=== PATIENT | female | born 1975 | race Caucasian/White ===

== ENCOUNTER 2018-09-30 10:27 | Outpatient (CLI) | payer OTHER, SELFPAY ==
[2018-09-30 11:16] LABS: HCG Qual (Urine) Negative
== END 2018-09-30 10:47 ==
PROVIDERS: PCP Nurse Practitioner Family; Visit Provider Radiology Radiation Oncology
DX: C50.112 Malignant neoplasm of central portion of left female breast (principal)
CPT/HCPCS: 81025

== ENCOUNTER 2019-02-09 11:35 | Outpatient (REF) | payer OTHER, SELFPAY ==
--- NOTE | 2019-02-09 11:00 | PAPFT_PTH ---
PATIENT: Aura Light LOC: N U#:[id number] AGE/SX: 43/F ROOM: RE02/09/[address]: Radha Estevez : 1975 BED: DIS: 02/09/2019 SPEC #: [id number] RECD: 02/09/19 11:53 STATUS: JERE REAlexis #: [id number] DAVID: 02/09/19 11:[address]: Radha Estevez DEPT: [facility] Cytology RECD BY: [place] ENTERED: 02/09/19 11:54 SP TYPE: PAPFT OTHR DR: Shereen العلي Tissues: 1 - CX/ENDOCX FOR PAP SMEARS Procedures: PAP THIN PREP/UVM Screening HPV DNA PROBE Comments: [id number]
== END 2019-02-09 11:55 ==
LOC: LBN 11:35
PROVIDERS: PCP Nurse Practitioner Women's Health; Visit Provider Obstetrics & Gynecology Gynecology
DX: Z12.4 Encounter for screening for malignant neoplasm of cervix (principal); Z11.51 Encounter for screening for human papillomavirus (HPV)
CPT/HCPCS: 88142; 87624

== ENCOUNTER 2019-02-17 00:18 | Outpatient (CLI) | payer OTHER, SELFPAY ==
--- NOTE | 2019-02-17 07:54 | DI.US_ITS ---
SYMPTOM/DIAGNOSIS: UTERINE BLEEDING, TAKING TAMOXIFEN N93.9 ABNORMAL UTERINE, VAGINAL BLEEDING PELVIC ULTRASOUND: 02/17/19 Pelvic ultrasound was performed transabdominally and transvaginally. Please see the accompanying data sheet for measurements of the pelvic structures. There are a couple of small uterine fibroids in the fundus, the largest measuring about 29 mm in greatest diameter. Left ovary contains simple 15 mm cyst. Right ovary contains a septated 46 x 31 x 32 mm predominantly cystic lesion with some internal septations and question of mild septal thickening. Lesion appears avascular. No free fluid identified in the cul de sac. Limited scanning of the kidneys is unremarkable. Endometrial stripe is homogeneous and 2 mm in thickness. CONCLUSION: 1. Small uterine fibroids 2. Small simple left ovarian cyst 3. 4.6 cm in greatest diameter septated right ovarian cyst with wall thickening, this is most likely benign process but the possibility of malignancy could not be excluded on the basis of this examination. Follow up examination recommended in 4-6 weeks and if this findings does not resolve additional evaluation with pelvic MRI would be recommended.
== END 2019-02-17 00:38 ==
PROVIDERS: PCP Nurse Practitioner Women's Health; Visit Provider Obstetrics & Gynecology Gynecology
DX: N93.9 Abnormal uterine and vaginal bleeding, unspecified (principal); D25.9 Leiomyoma of uterus, unspecified; N83.291 Other ovarian cyst, right side; N83.292 Other ovarian cyst, left side
CPT/HCPCS: 76830; 76856

== ENCOUNTER 2019-03-23 01:16 | Outpatient (CLI) | payer OTHER, SELFPAY ==
[2019-03-23 09:01] LABS: Abs Immature Grans 0.01 k/cumm (0.0-0.09); Absolute Basophil Count 0.03 k/cumm (0.0-0.2); Absolute Eosinophil Count 0.18 k/cumm (0.0-0.7); Absolute Lymphocyte Count 1.49 k/cumm (1.2-3.4); Absolute Monocyte Count 0.51 k/cumm (0.11-0.7); Absolute Neutrophil Count 3.93 k/cumm (1.2-6.7); Basophils % 0.5; Eosinophils % 2.9; HCT 39.5 % (36.0-46.0); HGB 13.2 g/dL (12.0-15.5); Immature Grans % 0.2; Lymphocytes % 24.2; Mean Corp. HGB Concentration 33.4 g/dL (32.0-36.0); Mean Corpuscular Hemoglobin 32.4 pg (27.0-33.0); Mean Corpuscular Volume 96.8 fL (80-95); Mean Platelet Volume 9.4 fL (8.0-11.0); Monocytes % 8.3; Neutrophils % 63.9; Platelet Count 249 x1000/uL (130-400); RBC 4.08 m/cumm (4.00-5.20); RBC Distribution Width 11.8 % (11.7-14.6); White Blood Cell Count 6.15 k/cumm (4.4-10.8)
[2019-03-23 16:58] LABS: Estradiol 182 pg/ml
[2019-03-24 09:57] LABS: FSH 22.6 mIU/ml
[2019-03-26 13:57] LABS: ALT 13 U/L (12-78); AST 10 U/L (15-37); Albumin 3.6 g/dL (3.4-5.0); Alkaline Phosphatase 50 U/L (46-116); Anion Gap 6.6 mmol/L (3-11); BUN 13 mg/dL (7-18); Bilirubin, Total 0.1 mg/dL (0.2-1.0); CO2 30.4 mmol/L (21.0-32.0); CREATININE 0.75 mg/dL (0.55-1.02); Calcium 8.9 mg/dL (8.5-10.1); Chloride 106 mmol/L (98-107); Glucose 83 mg/dL (70-100); Potassium 3.8 mmol/L (3.5-5.1); Sodium 143 mmol/L (136-145); Total Protein 7.2 g/dL (6.4-8.2)
== END 2019-03-23 01:36 ==
PROVIDERS: PCP Nurse Practitioner Women's Health; Visit Provider Internal Medicine
DX: C50.912 Malignant neoplasm of unspecified site of left female breast (principal); E28.319 Asymptomatic premature menopause
CPT/HCPCS: 36415; 80053; 82670; 83001; 85025

== ENCOUNTER 2019-07-25 01:44 | Outpatient (CLI) | payer OTHER, SELFPAY ==
[2019-07-25 11:27] LABS: ALT 13 U/L (14-59); AST 12 U/L (15-37); Albumin 3.6 g/dL (3.4-5.0); Alkaline Phosphatase 52 U/L (46-116); Anion Gap 5.4 mmol/L (3-11); BUN 14 mg/dL (7-18); Bilirubin, Total 0.2 mg/dL (0.2-1.0); CO2 28.6 mmol/L (21.0-32.0); CREATININE 0.75 mg/dL (0.55-1.02); Chloride 107 mmol/L (98-107); Glucose 83 mg/dL (74-106); Potassium 4.3 mmol/L (3.5-5.1); Sodium 141 mmol/L (136-145); Total Protein 7.1 g/dL (6.4-8.2)
== END 2019-07-25 02:04 ==
PROVIDERS: PCP Nurse Practitioner Family; Visit Provider Internal Medicine
DX: C50.112 Malignant neoplasm of central portion of left female breast (principal); Z17.0 Estrogen receptor positive status [ER+]
CPT/HCPCS: 36415; 80053

== ENCOUNTER 2019-11-06 08:07 | Outpatient (REF) | payer OTHER, SELFPAY ==
[2019-11-06 18:11] LABS: ALT 18 U/L (14-59); AST 21 U/L (15-37); Albumin 3.8 g/dL (3.4-5.0); Alkaline Phosphatase 60 U/L (46-116); Anion Gap 6.7 mmol/L (3-11); BUN 14 mg/dL (7-18); Bilirubin, Total 0.2 mg/dL (0.2-1.0); CO2 31.3 mmol/L (21.0-32.0); CREATININE 0.77 mg/dL (0.55-1.02); Calcium 9.4 mg/dL (8.5-10.1); Chloride 106 mmol/L (98-107); Glucose 83 mg/dL (74-106); Potassium 4.1 mmol/L (3.5-5.1); Sodium 144 mmol/L (136-145); Total Protein 7.6 g/dL (6.4-8.2)
== END 2019-11-06 08:27 ==
LOC: NCHCN 08:07
PROVIDERS: PCP Nurse Practitioner Family; Visit Provider Nurse Practitioner Family
DX: C50.112 Malignant neoplasm of central portion of left female breast (principal); Z17.0 Estrogen receptor positive status [ER+]
CPT/HCPCS: 80053

== ENCOUNTER 2020-02-11 02:25 | Outpatient (CLI) | payer OTHER, SELFPAY ==
[2020-02-11 17:31] LABS: ALT 20 U/L (14-59); AST 16 U/L (15-37); Albumin 3.9 g/dL (3.4-5.0); Alkaline Phosphatase 61 U/L (46-116); Anion Gap 9.1 mmol/L (3-11); BUN 17 mg/dL (7-18); Bilirubin, Total 0.2 mg/dL (0.2-1.0); CO2 24.9 mmol/L (21.0-32.0); Calcium 9.2 mg/dL (8.5-10.1); Chloride 105 mmol/L (98-107); Glucose 94 mg/dL (74-106); Potassium 4.5 mmol/L (3.5-5.1); Sodium 139 mmol/L (136-145); Total Protein 7.6 g/dL (6.4-8.2)
== END 2020-02-11 02:45 ==
PROVIDERS: PCP Nurse Practitioner Family; Visit Provider Internal Medicine
DX: C50.112 Malignant neoplasm of central portion of left female breast (principal); Z17.0 Estrogen receptor positive status [ER+]
CPT/HCPCS: 36415; 80053

== ENCOUNTER 2020-02-22 00:35 | Outpatient (CLI) | payer OTHER, SELFPAY ==
--- NOTE | 2020-02-22 06:45 | DI.US_ITS ---
EXAM: US PELVIS TRANSVAGINAL CLINICAL HISTORY: RLQ pain - s/p EM ablation,acute, r10.31. TECHNIQUE: Transabdominal and transvaginal pelvic ultrasound was performed using standard protocol. COMPARISON: US US PELVIS TRANSVAGINAL from 02/17/2019 FINDINGS: KIDNEYS: Kidneys are symmetric in size. No evidence of renal calculi. No evidence of hydronephrosis. No renal mass or cyst identified. UTERUS: Position: Anteverted. Size: 8.1 long by 3.7 AP by 5.0 transverse cm Endometrium: 0.3 cm. Normal for patient's menstrual status. Myometrium: 2.5 x 2.1 x 2.2 cm fibroid in the anterior fundus. Cervix: Unremarkable. OVARIES: Right: 3.9 x 1.9 x 2.2 cm Cyst or mass: There is a 2.7 x 1.5 x 1.9 cm solid mildly vascular lesion adjacent to or part of the r ight ovary. Left: 4.2 x 4.1 x 3.9 cm Cyst or mass: 3.6 x 2.6 x 3.3 cm simple cyst. DOPPLER: Color: Symmetric and uniform flow to both ovaries. No hyperemia. CUL-DE-SAC: Free fluid: Small amount of free fluid in the cul-de-sac. Other: None. IMPRESSION: 1. Normal sonographic appearance of the kidneys. 2. Fibroid uterus with normal endometrial stripe appearance. 3. 3.6 cm simple left ovarian cyst. 4. 2.7 x 1.5 x 1.9 cm solid mildly vascular lesion adjacent to or part of the right ovary. Further e valuation with MRI of the pelvis should be considered. DATA REPOSITORY:
== END 2020-02-22 00:55 ==
PROVIDERS: PCP Nurse Practitioner Family; Visit Provider Nurse Practitioner Family
DX: R10.31 Right lower quadrant pain (principal); D25.9 Leiomyoma of uterus, unspecified; N83.291 Other ovarian cyst, right side; N83.292 Other ovarian cyst, left side
CPT/HCPCS: 76830; 76856

== ENCOUNTER 2020-03-01 01:14 | Outpatient (CLI) | payer OTHER, SELFPAY ==
--- NOTE | 2020-03-01 06:45 | DI.MRI_ITS ---
EXAM: MR PELVIS WO/W CLINICAL HISTORY: rt ovarian mass, breast ca,q50.39,c50.919 TECHNIQUE: Multiplanar multisequence MRI of Pelvis was performed. CONTRAST MATERIAL: IV Contrast: 12.7 mL of Dotarem contrast administered. COMPARISON: US US PELVIS TRANSVAGINAL from 02/17/2019 US US PELVIS TRANSVAGINAL from 02/22/2020 FINDINGS: Uterus: There is a 2.5 long by 1.8 AP by 2.4 transverse cm mass in the anterior body of the uterus co nsistent with a fibroid. It is hypointense on both T1 and T2 weighted images. Following contrast ad ministration, it remains hypointense relative to the remainder of the uterus. There is a 2.5 long by 1.8 AP by 2.4 transverse cm mass adjacent to the fundal right side of the uter us. This corresponds to the mass seen on the ultrasound from 02/22/2020. Its signal characteristics are are similar to the uterine fibroid previously described. It is closely associated with the adjac ent uterus. This may represent an exophytic or pedunculated fibroid. The left ovary measures 2.7 x 4.2 cm. It contains cysts. The largest cyst measures 2.6 cm. The right ovary measures 3.4 x 2.9 cm. It contains cysts. The largest is a hemorrhagic cyst measuri ng 2 x 1.5 cm. There is a small amount of free fluid in the pelvis. The urinary bladder is grossly unremarkable. No significant adenopathy is present. IMPRESSION: 1. 2.5 cm anterior uterine fibroid. 2. 2.5 cm mass adjacent to the fundal right side of the uterus. Its signal characteristics are simil ar to the previously described uterine fibroid. This may represent an exophytic or pedunculated fibr oid. Other pelvic masses cannot be entirely excluded. 3. Bilateral ovarian cysts including a right ovarian hemorrhagic cyst. 4. Small amount of free fluid in the pelvis. DATA REPOSITORY:
[2020-03-01] MEDS: Gadoterate meglumine 20 ML VIAL 12.7 ML IV (08:41)
== END 2020-03-01 01:34 ==
PROVIDERS: PCP Nurse Practitioner Family; Visit Provider Obstetrics & Gynecology Gynecology
DX: C50.919 Malignant neoplasm of unspecified site of unspecified female breast (principal); Q50.39 Other congenital malformation of ovary; D25.9 Leiomyoma of uterus, unspecified; R93.89 Abnormal findings on diagnostic imaging of other specified body structures; N83.201 Unspecified ovarian cyst, right side; N83.202 Unspecified ovarian cyst, left side
CPT/HCPCS: 72197

== ENCOUNTER 2020-08-17 04:29 | Outpatient (CLI) | payer OTHER, SELFPAY ==
[2020-08-17 16:48] LABS: Abs Immature Grans 0.02 10^3/uL (0.0-0.06); Absolute Basophil Count 0.05 10^3/uL (0.0-0.2); Absolute Eosinophil Count 0.19 10^3/uL (0.0-0.7); Absolute Lymphocyte Count 1.94 10^3/uL (1.2-3.4); Absolute Monocyte Count 0.43 10^3/uL (0.1-0.8); Absolute Neutrophil Count 3.63 10^3/uL (1.2-6.7); Basophils % 0.8; HCT 39.6 % (36.0-46.0); HGB 13.4 g/dL (11.2-15.7); Immature Grans % 0.3; MCH 32.9 pg (27.0-33.0); MCHC 33.8 % (32.0-36.0); MCV 97.3 fL (80-95); MPV 9.2 fL (8.0-11.0); Monocytes % 6.9; Nucleated RBC 0 %; Platelet Count 260 10^3/uL (130-400); RBC 4.07 10^6/uL (3.93-5.22); RDW 11.7 % (11.7-14.6); WBC 6.26 10^3/uL (4.4-10.8)
[2020-08-17 18:06] LABS: ALT 24 U/L (14-59); AST 17 U/L (15-37); Albumin 3.9 g/dL (3.4-5.0); Alkaline Phosphatase 61 U/L (46-116); Anion Gap 7.1 mmol/L (3-11); BUN 15 mg/dL (7-18); Bilirubin, Total 0.2 mg/dL (0.2-1.0); CO2 28.9 mmol/L (21.0-32.0); Calcium 9.1 mg/dL (8.5-10.1); Chloride 103 mmol/L (98-107); Glucose 91 mg/dL (74-106); Potassium 4.5 mmol/L (3.5-5.1); Sodium 139 mmol/L (136-145); Total Protein 7.7 g/dL (6.4-8.2)
== END 2020-08-17 04:49 ==
PROVIDERS: PCP Nurse Practitioner Family; Visit Provider Nurse Practitioner Adult Health
DX: C50.112 Malignant neoplasm of central portion of left female breast (principal); Z17.0 Estrogen receptor positive status [ER+]; Z79.810 Long term (current) use of selective estrogen receptor modulators (SERMs)
CPT/HCPCS: 80053; 85025

== ENCOUNTER 2020-11-18 02:59 | Outpatient (CLI) | payer OTHER, SELFPAY ==
[2020-11-18 14:55] LABS: ALT 40 U/L (14-59); AST 20 U/L (15-37); Albumin 3.7 g/dL (3.4-5.0); Alkaline Phosphatase 54 U/L (46-116); Anion Gap 7.5 mmol/L (3-11); BUN 18 mg/dL (7-18); Bilirubin, Total 0.2 mg/dL (0.2-1.0); CO2 29.5 mmol/L (21.0-32.0); CREATININE 0.7 mg/dL (0.55-1.02); Calcium 8.9 mg/dL (8.5-10.1); Chloride 104 mmol/L (98-107); Glucose 103 mg/dL (74-106); Potassium 4.1 mmol/L (3.5-5.1); Sodium 141 mmol/L (136-145); Total Protein 7.5 g/dL (6.4-8.2)
== END 2020-11-18 03:00 | disposition home or self-care (01) ==
PROVIDERS: PCP Nurse Practitioner Family; Visit Provider Internal Medicine
DX: C50.912 Malignant neoplasm of unspecified site of left female breast (principal); Z79.810 Long term (current) use of selective estrogen receptor modulators (SERMs)
CPT/HCPCS: 36415; 80053

== ENCOUNTER 2021-03-10 01:52 | Outpatient (CLI) | payer OTHER, SELFPAY ==
[2021-03-10 16:59] LABS: Abs Immature Grans 0.03 10^3/uL (0.0-0.06); Absolute Basophil Count 0.07 10^3/uL (0.0-0.2); Absolute Eosinophil Count 0.14 10^3/uL (0.0-0.7); Absolute Lymphocyte Count 2.03 10^3/uL (1.2-3.4); Absolute Monocyte Count 0.53 10^3/uL (0.1-0.8); Absolute Neutrophil Count 3.96 10^3/uL (1.2-6.7); Eosinophils % 2.1; HCT 38.3 % (36.0-46.0); HGB 12.9 g/dL (11.2-15.7); Immature Grans % 0.4; MCHC 33.7 % (32.0-36.0); MPV 9.6 fL (8.0-11.0); Monocytes % 7.8; Neutrophils % 58.7; Nucleated RBC 0 %; Platelet Count 265 10^3/uL (130-400); RBC 4.03 10^6/uL (3.93-5.22); RDW 11.9 % (11.7-14.6); RDW-SD 41.8 fL; WBC 6.76 10^3/uL (4.4-10.8)
[2021-03-10 17:45] LABS: ALT 16 U/L (14-59); AST 13 U/L (15-37); Albumin 3.7 g/dL (3.4-5.0); Alkaline Phosphatase 51 U/L (46-116); Anion Gap 8.6 mmol/L (3-11); BUN 12 mg/dL (7-18); Bilirubin, Total 0.1 mg/dL (0.2-1.0); CO2 26.4 mmol/L (21.0-32.0); CREATININE 0.8 mg/dL (0.55-1.02); Calcium 8.8 mg/dL (8.5-10.1); Chloride 105 mmol/L (98-107); Glucose 91 mg/dL (74-106); Potassium 4.7 mmol/L (3.5-5.1); Sodium 140 mmol/L (136-145); Total Protein 7.2 g/dL (6.4-8.2)
== END 2021-03-10 01:53 | disposition home or self-care (01) ==
PROVIDERS: PCP Nurse Practitioner Family; Visit Provider Nurse Practitioner Adult Health
DX: C50.112 Malignant neoplasm of central portion of left female breast (principal); Z17.0 Estrogen receptor positive status [ER+]; Z79.810 Long term (current) use of selective estrogen receptor modulators (SERMs)
CPT/HCPCS: 36415; 80053; 85025

== ENCOUNTER 2021-09-14 03:06 | Outpatient (CLI) | payer OTHER, SELFPAY ==
[2021-09-14 17:43] LABS: ALT 19 U/L (14-59); AST 14 U/L (15-37); Albumin 3.7 g/dL (3.4-5.0); Alkaline Phosphatase 70 U/L (46-116); Anion Gap 7.6 mmol/L (3-11); BUN 17 mg/dL (7-18); Bilirubin, Total 0.1 mg/dL (0.2-1.0); CO2 28.4 mmol/L (21.0-32.0); CREATININE 0.8 mg/dL (0.55-1.02); Chloride 106 mmol/L (98-107); Glucose 90 mg/dL (74-106); Potassium 4.3 mmol/L (3.5-5.1); Sodium 142 mmol/L (136-145); Total Protein 7.5 g/dL (6.4-8.2)
== END 2021-09-14 03:07 | disposition home or self-care (01) ==
PROVIDERS: PCP Nurse Practitioner Family; Visit Provider Nurse Practitioner Adult Health
DX: C50.112 Malignant neoplasm of central portion of left female breast (principal)
CPT/HCPCS: 36415; 80053

== ENCOUNTER 2022-03-22 01:51 | Outpatient (CLI) | payer OTHER, SELFPAY ==
[2022-03-22 16:20] LABS: ALT 19 U/L (14-59); AST 17 U/L (15-37); Albumin 3.6 g/dL (3.4-5.0); Alkaline Phosphatase 48 U/L (46-116); Anion Gap 5.9 mmol/L (3-11); BUN 16 mg/dL (7-18); Bilirubin, Total 0.2 mg/dL (0.2-1.0); CO2 29.1 mmol/L (21.0-32.0); CREATININE 0.7 mg/dL (0.55-1.02); Chloride 105 mmol/L (98-107); Glucose 100 mg/dL (74-106); Potassium 4.1 mmol/L (3.5-5.1); Sodium 140 mmol/L (136-145); Total Protein 7.5 g/dL (6.4-8.2)
== END 2022-03-22 01:52 | disposition home or self-care (01) ==
PROVIDERS: PCP Nurse Practitioner Family; Visit Provider Nurse Practitioner Adult Health
DX: C50.112 Malignant neoplasm of central portion of left female breast (principal); Z17.0 Estrogen receptor positive status [ER+]
CPT/HCPCS: 36415; 80053

== ENCOUNTER 2022-03-22 15:53 | Outpatient (REF) | payer OTHER, SELFPAY ==
--- NOTE | 2022-03-22 15:30 | PAPFT_PTH ---
PATIENT: Aura Light LOC: [facility] U#:[id number] AGE/SX: 46/F ROOM: RE03/22/[address]: LIEN Frazier : 1975 BED: DIS: 03/22/2022 SPEC #: [id number] RECD: 03/22/22 18:12 STATUS: JERE REQ #: [id number] DAVID: 03/22/22 15:[address]: Kelly Avilez DEPT: [facility] Cytology RECD BY: Melia Rossi ENTERED: 03/22/22 18:13 SP TYPE: PAPFT OTHR DR: Rena Saab Tissues: 1 - CX/ENDOCX FOR PAP SMEARS Procedures: PAP THIN PREP/UVM Screening HPV DNA PROBE Comments: [id number]
== END 2022-03-22 15:54 | disposition home or self-care (01) ==
LOC: LBN 15:53
PROVIDERS: PCP Nurse Practitioner Family; Visit Provider Nurse Practitioner Family
DX: Z12.4 Encounter for screening for malignant neoplasm of cervix (principal); Z11.51 Encounter for screening for human papillomavirus (HPV); R87.810 Cervical high risk human papillomavirus (HPV) DNA test positive
CPT/HCPCS: 88142; 87624

== ENCOUNTER 2022-08-29 15:41 | Outpatient (REF) | payer OTHER, SELFPAY ==
[2022-08-29 16:23] LABS: Calculated LDL 139 mg/dL (<100); Cholesterol 251 mg/dL (<200); HDL Cholesterol 79 mg/dL (40-60); Triglyceride 168 mg/dL (<150)
== END 2022-08-29 15:42 | disposition home or self-care (01) ==
LOC: NCHCN 15:41
PROVIDERS: PCP Nurse Practitioner Family; Visit Provider Nurse Practitioner Family
DX: Z13.220 Encounter for screening for lipoid disorders (principal)
CPT/HCPCS: 80061

== ENCOUNTER 2022-10-03 02:32 | Outpatient (CLI) | payer OTHER, SELFPAY ==
[2022-10-03 17:28] LABS: ALT 26 U/L (14-59); AST 21 U/L (15-37); Albumin 3.9 g/dL (3.4-5.0); Alkaline Phosphatase 68 U/L (46-116); Anion Gap 4.2 mmol/L (3-11); BUN 15 mg/dL (7-18); Bilirubin, Total 0.2 mg/dL (0.2-1.0); CO2 31.8 mmol/L (21.0-32.0); CREATININE 0.7 mg/dL (0.55-1.02); Calcium 9.5 mg/dL (8.5-10.1); Chloride 104 mmol/L (98-107); Glucose 85 mg/dL (74-106); Potassium 4.2 mmol/L (3.5-5.1); Sodium 140 mmol/L (136-145); Total Protein 7.6 g/dL (6.4-8.2)
== END 2022-10-03 02:33 | disposition home or self-care (01) ==
LOC: LBO 02:32
PROVIDERS: PCP Nurse Practitioner Family; Visit Provider Internal Medicine
DX: C50.112 Malignant neoplasm of central portion of left female breast (principal); Z17.0 Estrogen receptor positive status [ER+]
CPT/HCPCS: 36415; 80053

== ENCOUNTER 2023-01-28 13:56 | Outpatient (REF) | payer OTHER, SELFPAY ==
[2023-01-30 11:00] LABS: Lyme Ab w Rflx to Lyme Confirm Negative (Negative)
== END 2023-01-28 13:57 | disposition home or self-care (01) ==
LOC: LBN 13:56
PROVIDERS: PCP Nurse Practitioner Family; Visit Provider Nurse Practitioner Family
DX: T14.8XXA Other injury of unspecified body region, initial encounter (principal); W57.XXXA Bitten or stung by nonvenomous insect and other nonvenomous arthropods, initial encounter
CPT/HCPCS: 86618

== ENCOUNTER 2023-04-25 16:13 | Outpatient (REF) | payer OTHER, SELFPAY ==
--- NOTE | 2023-04-25 16:00 | PAPFT_PTH ---
PATIENT: Aura Light LOC: [facility] U#:[id number] AGE/SX: 47/F ROOM: RE04/25/[address]: Radha Estevez : 1975 BED: DIS: 04/25/2023 SPEC #: [id number] RECD: 04/25/23 17:54 STATUS: JERE REAlexis #: [id number] DAVID: 04/25/23 16:[address]: Radha Estevez DEPT: [facility] Cytology RECD BY: Melia Rossi ENTERED: 04/25/23 17:54 SP TYPE: PAPFT OTHR DR: Rena Saab Tissues: 1 - CX/ENDOCX FOR PAP SMEARS Procedures: PAP THIN PREP/UVM Screening HPV DNA PROBE Comments: [id number]
== END 2023-04-25 16:14 | disposition home or self-care (01) ==
LOC: LBN 16:13
PROVIDERS: PCP Nurse Practitioner Family; Visit Provider Obstetrics & Gynecology Gynecology
DX: Z12.4 Encounter for screening for malignant neoplasm of cervix (principal); Z11.51 Encounter for screening for human papillomavirus (HPV)
CPT/HCPCS: 88142; 87624

== ENCOUNTER 2023-05-01 03:59 | Outpatient (CLI) | payer OTHER, SELFPAY ==
[2023-05-01 16:55] LABS: Abs Immature Grans 0.01 10^3/uL (0.0-0.06); Absolute Basophil Count 0.05 10^3/uL (0.0-0.2); Absolute Eosinophil Count 0.14 10^3/uL (0.0-0.7); Absolute Lymphocyte Count 1.93 10^3/uL (1.2-3.4); Absolute Monocyte Count 0.41 10^3/uL (0.1-0.8); Basophils % 0.8; Eosinophils % 2.3; HCT 39.4 % (36.0-46.0); HGB 13.7 g/dL (11.2-15.7); Immature Grans % 0.2; MCH 32.9 pg (27.0-33.0); MCHC 34.8 % (32.0-36.0); MCV 95 fL (80-95); MPV 9.5 fL (8.0-11.0); Monocytes % 6.8; Neutrophils % 57.9; Platelet Count 293 10^3/uL (130-400); RBC 4.16 10^6/uL (3.93-5.22); RDW 11.9 % (11.7-14.6); RDW-SD 41.7 fL; WBC 6.04 10^3/uL (4.4-10.8)
[2023-05-01 18:21] LABS: ALT 20 U/L (14-59); AST 15 U/L (15-37); Albumin 3.8 g/dL (3.4-5.0); Alkaline Phosphatase 65 U/L (46-116); Anion Gap 6.1 mmol/L (3-11); BUN 18 mg/dL (7-18); Bilirubin, Total 0.2 mg/dL (0.2-1.0); CO2 28.9 mmol/L (21.0-32.0); CREATININE 0.7 mg/dL (0.55-1.02); Calcium 9.7 mg/dL (8.5-10.1); Chloride 102 mmol/L (98-107); Estimated GFR 108.62 (mL/min/1.73m2); Glucose 91 mg/dL (74-106); Potassium 4.9 mmol/L (3.5-5.1); Sodium 137 mmol/L (136-145); Total Protein 7.7 g/dL (6.4-8.2)
== END 2023-05-01 04:00 | disposition home or self-care (01) ==
LOC: LBO 03:59
PROVIDERS: PCP Nurse Practitioner Family; Visit Provider Nurse Practitioner Family
DX: C50.912 Malignant neoplasm of unspecified site of left female breast (principal)
CPT/HCPCS: 36415; 80053; 85025

== ENCOUNTER 2023-10-14 08:18 | Day surgery (SDC) | payer OTHER, SELFPAY ==
--- NOTE | 2023-10-13 17:19 | ANES.PREOP_ITS ---
General Info Date of Service Date Performed: 10/14/23 Height: 5 ft 5 in Weight: 65.317 kg Body Mass Index (BMI): 23.9 Surgical Procedure: Operation Date: 10/14/23 09:50 Proposed Procedure Side Surgeon p Colonoscopy Patrick Mcbride MD Meds Allergies and Home Medications Allergies Allergy/AdvReac Type Severity Reaction Status Date / Time No Known Allergies Allergy Verified 10/14/23 08:34 Home Medication Medication Instructions Recorded fluocinolone acetonide oil 0.01 % 2 drp otic (ear) BID PRN 02/09/19 ear drops multivitamin with minerals-folic 2 tab PO DAILY 02/09/19 acid 80 mcg chewable tablet (Centrum MultiGummies) sertraline 25 mg tablet 25 mg PO DAILY 02/09/19 tamoxifen 20 mg tablet 20 mg PO DAILY 02/09/19 acetaminophen 500 mg tablet 500 mg PO Q6H PRN 02/23/21 (Tylenol Extra Strength) ibuprofen 200 mg tablet (Advil) 200 mg PO Q6H PRN 02/23/21 mupirocin 2 % topical ointment 1 applic topical DAILY PRN 04/25/23 calcium carbonate 500 mg-vitamin 1 tab PO DAILY 09/02/23 D3 10 mcg (400 unit) tablet bisacodyl 5 mg tablet,delayed 5 mg PO .Take as directed 09/26/23 release (Dulcolax (bisacodyl)) colonoscopy #4 tabs polyethylene glycol 3350 17 238 g PO ONCE colonoscopy #238 09/26/23 gram/dose oral powder (Miralax) grams psyllium husk 0.4 gram capsule 0.4 g PO DAILY 09/26/23 (Daily Fiber) Current Visit Medications: Current Medications Generic Name Dose Route Start Last Admin Trade Name Freq PRN Reason Stop Dose Admin Ringer's Solution 1,000 mls @ 80 mls/hr 10/14/23 06:00 IV 11/10/23 23:59 INFUSION ANA ROSA IV Miscellaneous Supplies 1 each 10/14/23 06:00 Iv Access IV 11/10/23 23:59 DIRECTED ANA ROSA Sodium Chloride 0 ml 10/14/23 06:00 Normal Saline Flush 10 Ml Syr IV 11/10/23 23:59 PRN PRN Sodium Chloride 0 ml 10/14/23 06:00 Normal Saline 10 Ml Vial IJ 11/10/23 23:59 DIRECTED PRN Sterile Water 0 ml 10/14/23 06:00 Water,Injection,Sterile 10 Ml Vial IJ 11/10/23 23:59 DIRECTED PRN PFSH Active Problems Active Problems: Problem Status Onset Code Encounter for repeat Papanicolaou smear of cervix Z12.4 History of tamoxifen therapy Z92.29 History of breast cancer Z85.3 Impacted cerumen of both ears H61.23 History of abnormal uterine bleeding Z87.42 Depression F32.9 Breast CA C50.919 Surgical History Surgical History [place] teeth extracted S/P partial mastectomy 08/27/2018 left lumpectomy and sentinel node biopsy. History of tubal ligation Status post hysteroscopic ablation of endometrium 2015. at time of BTL. Tobacco Smoking/Tobacco Use Status: Never Passive smoking exposure: No Alcohol Alcohol Intake: never Details: Occasional prior to BrCA dx. Substance Use Substance use: Never Substance use type: does not use Prental History History 0 Para Hx # Term Pregnancies Multiple births Hx # Pregnancies Ectopic pregnancies AB induced Hx Number of Living Children AB spontaneous Vital Signs and Lab Results Vital Signs Most Recent Vital Signs in EMR: Temp Pulse Resp BP Pulse Ox 36.6 C 83 18 115/79 99 10/14/23 08:39 10/14/23 08:39 10/14/23 08:39 10/14/23 08:39 10/14/23 08:39 Lab Results Blood Type / Crossmatch: No Data to Display Complete Blood Count: No Data to Display Complete Metabolic Panel: No Data to Display Liver Function Panel: No Data to Display Coagulation Panel: No Data to Display Cardiac Panel: No Data to Display Arterial Blood Gas: No Data to Display Venous Blood Gas: No Data to Display Pancreas Panel: No Data to Display Thyroid Panel: No Data to Display Infectious Disease: No Data to Display Blood Cultures: No Data to Display Toxicology Panel: No Data to Display Panel: No Data to Display Anesthesia Assessment and Plan Anesthesia History Personal History: No History of Anesthesia Complications Family History: No Family History of Anesthesia Complications Exercise Tolerance Exercise Tolerance: Metabolic Equivalents>4 Cardiac & Pulmonary Exam Cardiac Exam: Normal S1/S2 Heart Sounds Pulmonary Exam: Clear Bilateral Breath Sounds Implantable Cardiac Device Does patient have a Pacemaker or an ICD?: No Airway Exam Known Difficult Airway: No Mallampati Class: 3 Mouth Opening: Normal (> 3cm) Thyromental Distance: Greater than 3 cm Neck Range of Motion: Full ROM Neck Circumference: Normal Teeth Condition: Normal Dentition ASA Classification ASA Score: ASA 2 Emergency Case?: No NPO Status NPO Status: NPO Clears >2 hours, Solids >8 hours Status Status: Negative HCG Anesthesia Plan Resuscitation Status: Full Code Anesthesia Technique: General Anesthesia Airway Planned: Natural Airway Monitors Used: Standard Monitors Preoperative Comments:: 47 yo female for colo. Sig PMHx: breast CA, depression, never smoker,
[2023-10-14 08:39] VITALS: BP 115/79; PULSE 83; RESP 18; TEMP 36.6; O2SAT 99
--- NOTE | 2023-10-14 08:57 | W.COLOREPORT ---
Date of service: 10/14/23 Time of Service: 08:57 Colonoscopy Report Procedure Description: PROCEDURES PERFORMED: 1. Colonoscopy PREOPERATIVE DIAGNOSIS: Screening colonoscopy POSTOPERATIVE DIAGNOSIS: Normal colon, normal rectum, normal terminal ileum SURGEON: Jose Mcbride MD INDICATION for procedure: The patient is a 47-year-old woman who has never had a colonoscopy before. She has no symptoms. Her grandmother had colorectal cancer. Her mother has had polyps many times but the patient reports that the polyps were not the bad kind. FINDINGS: Normal colon, normal rectum, normal terminal ileum. No polyps. No diverticular disease. No significant hemorrhoid disease. SURVEILLANCE interval/FOLLOW-UP: Isolated grandmother does not increase risk, mother with adenomatous polyps does not increase risk, I think she can repeat another colonoscopy in 10 years SPECIMENS: yes EBL: Minimal COMPLICATIONS: None QUALITY of prep: Excellent Procedure in detail: The patient gave written consent and was in agreement with the indications, the potential risks as well as the benefits of the procedure. They were taken to the endoscopy suite and laid in the left lateral decubitus position. A timeout was performed and anesthesia was administered which was tolerated well. I started the procedure. Digital rectal and visual examination was performed and grossly within normal limits. A well-lubricated flexible colonoscope was then introduced and passed without any notable difficulty all the way to the cecum identified by the ileocecal valve and the appendiceal orifice. The terminal ileum was briefly intubated and looked normal. The scope was then slowly withdrawn with the above-noted findings. The patient tolerated the procedure well and was taken to the PACU in hemodynamically stable condition.
[2023-10-14] MEDS: Lactated Ringers 1,000 ML 80 ML IV (08:59)
[2023-10-14 09:12] VITALS: BMI 23.9
--- NOTE | 2023-10-14 09:34 | W.PM.DSUDISC ---
Date of service: 10/14/23 Time of Service: 09:34 Discharge Plan Disposition Patient Disposition: Home Condition: Good Discharge Details Attending Provider: Patrick Mcbride Primary Care Provider: SAMIA US Home Meds and New Rx's Prescriptions: No Action tamoxifen 20 mg tablet 20 mg PO DAILY sertraline 25 mg tablet 25 mg PO DAILY fluocinolone acetonide oil 0.01 % drops 2 drp OT BID PRN Centrum MultiGummies 80 mcg tablet,chewable 2 tab PO DAILY acetaminophen [Tylenol Extra Strength] 500 mg tablet 500 mg PO Q6H PRN ibuprofen [Advil] 200 mg tablet 200 mg PO Q6H PRN mupirocin 2 % ointment 1 applic topical DAILY PRN Patient Comments: usually only needed once a yr for a sk psyllium husk [Daily Fiber] 0.4 gram capsule 0.4 g PO DAILY bisacodyl [Dulcolax (bisacodyl)] 5 mg tablet,delayed release (DR/EC) 5 mg PO .Take as directed Qty: 4 0RF Rx Instructions: take as directed for bowel prep polyethylene glycol 3350 [Miralax] 17 gram/dose powder 238 g PO ONCE Qty: 238 0RF Rx Instructions: take as directed calcium carbonate-vitamin D3 500 mg-10 mcg (400 unit) tablet 1 tab PO DAILY Discharge Instructions Additional Instructions: FINDINGS: Your colon, small intestine and rectum all appear healthy and normal. No inflammation was seen. No polyps were found. Your family history does not really increase your risk for colorectal cancer though the risk for colorectal cancer is high at baseline for all humans. You can repeat another colonoscopy in 10 years. Activity:: Activity as Tolerated Diet:: As Tolerated
[2023-10-14 10:05] VITALS: BP 89/54; PULSE 75; RESP 16; TEMP 36.4; O2SAT 98
--- NOTE | 2023-10-14 10:12 | W.ANESPOSTOP ---
Postoperative Evaluation Date, Time and Location Date Performed: 10/14/23 Time Performed: 10:12 Patient Location: Day Surgery Unit Vital Signs Most Recent Imported Vital Signs: Most Recent Vital Signs Temp Pulse Resp BP Pulse Ox 36.4 C L 75 16 89/54 L 98 10/14/23 10:05 10/14/23 10:05 10/14/23 10:05 10/14/23 10:05 10/14/23 10:05 Pain Score Most Recent Pain Score: Most Recent Pain Score Pain Level 0 10/14/23 10:05 Assessment Mental Status: Awake (Alert & Oriented to Patient Baseline) Airway and Respiratory Function: Patent airway with normal (patient baseline) respiratory exam Cardiovascular Function: Hemodynamically Stable Hydration Status: Adequately Hydrated Nausea & Vomiting: No Nausea or Vomiting Pain: Pt. Denies Any Pain Peripheral Nerve Block: Patient did not receive a nerve block
[2023-10-14 10:23] VITALS: BP 95/53; PULSE 72; RESP 16; TEMP 36.2; O2SAT 100
== END 2023-10-14 10:55 | disposition home or self-care (01) ==
PROVIDERS: PCP Nurse Practitioner Family; Visit Provider Student in an Organized Health Care Education/Training Program
PROC: 0DJD8ZZ Inspection of Lower Intestinal Tract, Via Natural or Artificial Opening Endoscopic (ICD-10-PCS; CPT 45378; principal; 2023-10-14 09:45)
DX: Z12.11 Encounter for screening for malignant neoplasm of colon (principal); C50.912 Malignant neoplasm of unspecified site of left female breast; Z79.899 Other long term (current) drug therapy
CPT/HCPCS: 45378; 00123; 81025; J2704

== ENCOUNTER 2023-10-24 03:14 | Outpatient (CLI) | payer OTHER, SELFPAY ==
[2023-10-24 17:00] LABS: Abs Immature Grans 0.02 10^3/uL (0.0-0.06); Absolute Basophil Count 0.06 10^3/uL (0.0-0.2); Absolute Eosinophil Count 0.22 10^3/uL (0.0-0.7); Absolute Lymphocyte Count 2.16 10^3/uL (1.2-3.4); Absolute Monocyte Count 0.58 10^3/uL (0.1-0.8); Absolute Neutrophil Count 2.99 10^3/uL (1.2-6.7); Eosinophils % 3.6; HCT 40.3 % (36.0-46.0); HGB 13.7 g/dL (11.2-15.7); Immature Grans % 0.3; Lymphocytes % 35.8; MCH 32.4 pg (27.0-33.0); MCV 95 fL (80-95); MPV 9.5 fL (8.0-11.0); Monocytes % 9.6; Neutrophils % 49.7; Platelet Count 264 10^3/uL (130-400); RBC 4.23 10^6/uL (3.93-5.22); RDW 12.1 % (11.7-14.6); RDW-SD 42.4 fL; WBC 6.03 10^3/uL (4.4-10.8)
[2023-10-24 17:29] LABS: ALT 23 U/L (14-59); AST 20 U/L (15-37); Albumin 3.6 g/dL (3.4-5.0); Alkaline Phosphatase 62 U/L (46-116); Anion Gap 8.6 mmol/L (3-11); BUN 17 mg/dL (7-18); Bilirubin, Total 0.2 mg/dL (0.2-1.0); CO2 28.4 mmol/L (21.0-32.0); CREATININE 0.7 mg/dL (0.55-1.02); Chloride 104 mmol/L (98-107); Estimated GFR 108.62 (mL/min/1.73m2); Glucose 89 mg/dL (74-106); Potassium 4.6 mmol/L (3.5-5.1); Sodium 141 mmol/L (136-145); Total Protein 7.6 g/dL (6.4-8.2)
== END 2023-10-24 03:15 | disposition home or self-care (01) ==
LOC: LBO 03:14
PROVIDERS: PCP Nurse Practitioner Family; Visit Provider Nurse Practitioner
DX: C50.112 Malignant neoplasm of central portion of left female breast (principal); Z17.0 Estrogen receptor positive status [ER+]
CPT/HCPCS: 36415; 80053; 85025

== ENCOUNTER 2024-04-21 02:34 | Outpatient (CLI) | payer OTHER, SELFPAY ==
[2024-04-21 17:11] LABS: Abs Immature Grans 0.05 10^3/uL (0.0-0.06); Absolute Basophil Count 0.06 10^3/uL (0.0-0.2); Absolute Eosinophil Count 0.12 10^3/uL (0.0-0.7); Absolute Lymphocyte Count 2.07 10^3/uL (1.2-3.4); Absolute Neutrophil Count 5.29 10^3/uL (1.2-6.7); Basophils % 0.7 %; Eosinophils % 1.5 %; HCT 40.4 % (36.0-46.0); HGB 13.7 g/dL (11.2-15.7); Immature Grans % 0.6 %; Lymphocytes % 25.3 %; MCH 32.5 pg (27.0-33.0); MCHC 33.9 % (32.0-36.0); MCV 96 fL (80-95); MPV 9.3 fL (8.0-11.0); Monocytes % 7.3 %; Neutrophils % 64.6 %; Platelet Count 264 10^3/uL (130-400); RBC 4.21 10^6/uL (3.93-5.22); RDW-SD 42.3 fL; WBC 8.19 10^3/uL (4.4-10.8)
[2024-04-21 18:38] LABS: ALT 19 U/L (14-59); AST 17 U/L (15-37); Albumin 3.7 g/dL (3.4-5.0); Alkaline Phosphatase 63 U/L (46-116); Anion Gap 8.3 mmol/L (3-11); BUN 16 mg/dL (7-18); Bilirubin, Total 0.21 mg/dL (0.2-1.0); CO2 28.7 mmol/L (21.0-32.0); CREATININE 0.8 mg/dL (0.55-1.02); Calcium 9.2 mg/dL (8.5-10.1); Chloride 103 mmol/L (98-107); Estimated GFR 91.97 (mL/min/1.73m2); Glucose 80 mg/dL (74-106); Potassium 4.9 mmol/L (3.5-5.1); Sodium 140 mmol/L (136-145); Total Protein 7.5 g/dL (6.4-8.2)
== END 2024-04-21 02:35 | disposition home or self-care (01) ==
LOC: LBO 02:34
PROVIDERS: PCP Nurse Practitioner Family; Visit Provider Nurse Practitioner
DX: C50.112 Malignant neoplasm of central portion of left female breast (principal); Z17.0 Estrogen receptor positive status [ER+]
CPT/HCPCS: 36415; 80053; 85025

== ENCOUNTER 2024-07-14 01:05 | Outpatient (CLI) | payer OTHER, SELFPAY ==
--- NOTE | 2024-07-14 11:16 | DI.MAMMO_ITS ---
Exam(s) MG MAMMO SCREENING 60 MIN DUR EXAM: MG MAMMO SCREENING 60 MIN DUR CLINICAL HISTORY: breast cancer screening,PERSONAL H/O LT BREAST,S/P LUMPECTOMY AND XRT,Z85.3 TECHNIQUE: Mammograms were interpreted according to the usual protocol including computer analysis w ith CAD system, tomosynthesis and C-view imaging. COMPARISON: 2017 through 2022 FINDINGS: The breasts are composed of heterogeneously dense fibroglandular densities, Breast Density category C . No suspicious masses or suspicious microcalcifications are seen. Metallic clips are again noted in t he inferior left breast at the lumpectomy site. No skin thickening or abnormal axillary lymph nodes are seen. There has been no significant change from prior exams. IMPRESSION: BI-RADS Category 2 - Benign Findings Yearly screening mammography is recommended. Breast Density Category C, heterogeneously Dense. The mammogram demonstrates the patient's breast tissue is dense. Dense breast tissue is very common a nd is not abnormal but dense breast tissue can make it harder to find cancer on a mammogram. Also, de nse breast tissue may increase breast cancer risk. This information about the result of the mammogram report was provided to the patient to raise their awareness. Use this report when you speak with the patient about their risks for breast cancer, which includes their family history. At that time, you may recommend additional screening tests (Ultrasound or MRI) as they might be useful based on their r isk. A negative radiographic report should not delay biopsy if a dominant or clinically suspicious mass is present. Up to ten percent of cancers are not identified on mammography. A negative report may reinforce clinical impression. Adenosis and dense breasts may obscure an underlying neoplasm. False positive reports average 6 to 10%.
== END 2024-07-14 01:25 ==
LOC: DI 01:05
PROVIDERS: PCP Nurse Practitioner Family; Visit Provider Obstetrics & Gynecology Gynecology
DX: Z85.3 Personal history of malignant neoplasm of breast (principal); R92.323 Mammographic fibroglandular density, bilateral breasts; D24.2 Benign neoplasm of left breast
CPT/HCPCS: 77063; 77067

== ENCOUNTER 2024-10-21 04:41 | Outpatient (CLI) | payer BC, SELFPAY ==
[2024-10-21 16:53] LABS: Abs Immature Grans 0.01 10^3/uL (0.0-0.06); Absolute Basophil Count 0.05 10^3/uL (0.0-0.2); Absolute Eosinophil Count 0.12 10^3/uL (0.0-0.7); Absolute Lymphocyte Count 2.34 10^3/uL (1.2-3.4); Absolute Monocyte Count 0.47 10^3/uL (0.1-0.8); Absolute Neutrophil Count 2.68 10^3/uL (1.2-6.7); Basophils % 0.9 %; Eosinophils % 2.1 %; HCT 39.8 % (36.0-46.0); HGB 13.5 g/dL (11.2-15.7); Immature Grans % 0.2 %; Lymphocytes % 41.3 %; MCH 32.5 pg (27.0-33.0); MCHC 33.9 % (32.0-36.0); MCV 96 fL (80-95); MPV 9.3 fL (8.0-11.0); Monocytes % 8.3 %; Neutrophils % 47.2 %; Platelet Count 320 10^3/uL (130-400); RBC 4.15 10^6/uL (3.93-5.22); RDW-SD 42.7 fL; WBC 5.67 10^3/uL (4.4-10.8)
[2024-10-21 17:08] LABS: ALT 27 U/L (14-59); AST 17 U/L (15-37); Albumin 3.7 g/dL (3.4-5.0); Alkaline Phosphatase 78 U/L (46-116); Anion Gap 6.3 mmol/L (3-11); BUN 17 mg/dL (7-18); Bilirubin, Total 0.2 mg/dL (0.2-1.0); CO2 29.7 mmol/L (21.0-32.0); CREATININE 0.8 mg/dL (0.55-1.02); Calcium 9.1 mg/dL (8.5-10.1); Chloride 106 mmol/L (98-107); Estimated GFR 91.97 (mL/min/1.73m2); Glucose 89 mg/dL (74-106); Potassium 4.5 mmol/L (3.5-5.1); Sodium 142 mmol/L (136-145); Total Protein 7.7 g/dL (6.4-8.2)
== END 2024-10-21 04:42 | disposition home or self-care (01) ==
PROVIDERS: PCP Nurse Practitioner Family; Visit Provider Internal Medicine
DX: C50.912 Malignant neoplasm of unspecified site of left female breast (principal)
CPT/HCPCS: 36415; 80053; 85025

== ENCOUNTER 2025-04-20 11:32 | Outpatient (CLI) | payer BC, SELFPAY ==
[2025-04-20 16:54] LABS: Abs Immature Grans 0.02 10^3/uL (0.0-0.06); HCT 40.0 % (36.0-46.0); HGB 13.2 g/dL (11.2-15.7); Immature Grans % 0.3 %; MCH 31.4 pg (27.0-33.0); MCHC 33.0 % (32.0-36.0); MCV 95 fL (80-95); MPV 9.4 fL (8.0-11.0); Platelet Count 267 10^3/uL (130-400); RBC 4.21 10^6/uL (3.93-5.22); RDW 11.9 % (11.7-14.6); RDW-SD 41.5 fL; WBC 6.43 10^3/uL (4.4-10.8)
== END 2025-04-20 11:33 | disposition home or self-care (01) ==
LOC: LBO 11:33
PROVIDERS: PCP Nurse Practitioner Family; Visit Provider Internal Medicine
DX: C50.912 Malignant neoplasm of unspecified site of left female breast (principal)
CPT/HCPCS: 36415; 85025

== ENCOUNTER 2025-04-26 09:12 | Outpatient (CLI) | payer BC, SELFPAY ==
[2025-04-26 17:20] LABS: Abs Immature Grans 0.02 10^3/uL (0.0-0.06); HCT 39.6 % (36.0-46.0); HGB 13.3 g/dL (11.2-15.7); Immature Grans % 0.3 %; MCH 31.8 pg (27.0-33.0); MCHC 33.6 % (32.0-36.0); MCV 95 fL (80-95); MPV 9.6 fL (8.0-11.0); Platelet Count 257 10^3/uL (130-400); RBC 4.18 10^6/uL (3.93-5.22); RDW 11.9 % (11.7-14.6); RDW-SD 41.1 fL; WBC 7.23 10^3/uL (4.4-10.8)
[2025-04-26 18:11] LABS: ALT 18 U/L (14-59); AST 17 U/L (15-37); Albumin 3.7 g/dL (3.4-5.0); Alkaline Phosphatase 69 U/L (46-116); Anion Gap 7.5 mmol/L (3-11); BUN 14 mg/dL (7-18); Bilirubin, Total 0.2 mg/dL (0.2-1.0); CO2 29.5 mmol/L (21.0-32.0); Calcium 9.0 mg/dL (8.5-10.1); Chloride 104 mmol/L (98-107); Estimated GFR 91.40 (mL/min/1.73m2); Glucose 92 mg/dL (74-106); Potassium 4.6 mmol/L (3.5-5.1); Sodium 141 mmol/L (136-145); Total Protein 7.6 g/dL (6.4-8.2)
== END 2025-04-26 09:13 | disposition home or self-care (01) ==
LOC: LBO 09:12
PROVIDERS: PCP Nurse Practitioner Family; Visit Provider Internal Medicine
DX: C50.912 Malignant neoplasm of unspecified site of left female breast (principal)
CPT/HCPCS: 36415; 80053; 85025

== ENCOUNTER 2025-06-21 09:57 | Outpatient (CLI) | payer BC, SELFPAY ==
[2025-06-21 16:51] LABS: Abs Immature Grans 0.02 10^3/uL (0.0-0.06); HCT 39.8 % (36.0-46.0); HGB 13.4 g/dL (11.2-15.7); Immature Grans % 0.3 %; MCH 31.6 pg (27.0-33.0); MCHC 33.7 % (32.0-36.0); MCV 94 fL (80-95); MPV 9.1 fL (8.0-11.0); Platelet Count 266 10^3/uL (130-400); RBC 4.24 10^6/uL (3.93-5.22); RDW 11.9 % (11.7-14.6); RDW-SD 41.1 fL; WBC 6.39 10^3/uL (4.4-10.8)
[2025-06-21 17:29] LABS: ALT 17 U/L (14-59); AST 14 U/L (15-37); Albumin 3.7 g/dL (3.4-5.0); Alkaline Phosphatase 75 U/L (46-116); Anion Gap 6.2 mmol/L (3-11); BUN 18 mg/dL (7-18); Bilirubin, Total 0.2 mg/dL (0.2-1.0); CO2 30.8 mmol/L (21.0-32.0); Calcium 8.7 mg/dL (8.5-10.1); Chloride 103 mmol/L (98-107); Glucose 89 mg/dL (74-106); Potassium 4.1 mmol/L (3.5-5.1); Sodium 140 mmol/L (136-145); Total Protein 8.0 g/dL (6.4-8.2)
== END 2025-06-21 09:58 | disposition home or self-care (01) ==
LOC: LBO 09:58
PROVIDERS: PCP Nurse Practitioner Family; Visit Provider Nurse Practitioner Family
DX: R10.9 Unspecified abdominal pain (principal)
CPT/HCPCS: 36415; 80053; 85025

== ENCOUNTER → 2025-07-22 01:11 | Outpatient (CLI) | payer BC, SELFPAY ==
--- NOTE | 2025-07-22 07:15 | DI.MAMMO_ITS ---
Exam(s) MG MAMMO SCREENING 60 MIN DUR EXAM: MG MAMMO SCREENING 60 MIN DUR CLINICAL HISTORY: breast cancer screening, breast ca,c50.919 TECHNIQUE: Mammograms were interpreted according to the usual protocol including computer analysis with CAD system, tomosynthesis and C-view imaging. COMPARISON: 2017 through 2023 FINDINGS: The breasts are composed of heterogeneously dense fibroglandular densities, Breast Density category C. No suspicious masses or suspicious microcalcifications are seen. Postsurgical clips are again noted in the posterior inferior left breast. No skin thickening or abnormal axillary lymph nodes are seen. There has been no significant change from prior exams. IMPRESSION: BI-RADS Category 1, Negative mammogram. Yearly screening mammography is recommended. Breast Density: Category C - The breasts are heterogeneously dense, which may obscure small masses. Breast density Category C or D implies that the patient has dense breast tissue. Dense breast tissue can make it harder to find cancer on a mammogram. Dense breast tissue is also associated with an increased risk of breast cancer. This information about the result of the mammogram report was provided to the patient to raise their awareness. Use this report when you speak with the patient about their risks for breast cancer, which includes their family history. At that time, you may recommend additional screening tests (Ultrasound or MRI) as these tests may add significant information. A negative radiographic report should not delay biopsy if a dominant or clinically suspicious mass is present. Up to ten percent of cancers are not identified on mammography. A negative report may reinforce clinical impression. Adenosis and dense breasts may obscure an underlying neoplasm. False positive reports average 6 to 10%.
== END ==
LOC: DI 01:11
PROVIDERS: PCP Nurse Practitioner Family; Visit Provider Obstetrics & Gynecology
DX: C50.912 Malignant neoplasm of unspecified site of left female breast (principal); Z12.31 Encounter for screening mammogram for malignant neoplasm of breast; R92.323 Mammographic fibroglandular density, bilateral breasts; R92.333 Mammographic heterogeneous density, bilateral breasts
CPT/HCPCS: 77063; 77067